=== PATIENT | female | born 1945 | race Caucasian/White ===

== ENCOUNTER 2017-02-11 07:43 | Day surgery (SDC) | payer OTHER ==
[~2017-02-11] VITALS: Ht 167.6 cm; Wt 71.4 kg
[~2017-02-11 07:43] MED LIST: FOLBIC RF TABL1 EACH PO; LIPITOR10 MG PO; LO-DOSE ASPIRIN81 M2 PO; TYLENOL ARTHRI650 MG PO; TYLENOL EXTRA500 MG PO; VITAMIN D-32000 UNI2 PO; ZOLOFT100 MG PO
[2017-02-11 08:36] VITALS: BP 146/101
[2017-02-11] MEDS ORDERED: NORCO 5/3251 TABLET PO (10:41)
[2017-02-11 11:42] VITALS: BP 131/78
[2017-02-11 12:59] VITALS: BP 111/67
[2017-02-11 13:09] VITALS: BP 111/67
== END 2017-02-11 13:15 | disposition home or self-care (01) ==
LOC: SDC 07:43
PROC: 0FT44ZZ Resection of Gallbladder, Percutaneous Endoscopic Approach (ICD-10-PCS; principal; 2017-02-11)
DX: K80.10 Calculus of gallbladder with chronic cholecystitis without obstruction (principal); Z87.891 Personal history of nicotine dependence; M19.90 Unspecified osteoarthritis, unspecified site; F32.9 Major depressive disorder, single episode, unspecified; Z79.82 Long term (current) use of aspirin; Z87.19 Personal history of other diseases of the digestive system
CPT/HCPCS: 88304; J0131; J1100; J2250; J2405; J2710; J3010